=== PATIENT | male | born 1985 | race Asian ===

== ENCOUNTER 2018-03-01 16:31 | Emergency (ER) | payer SELFPAY ==
[~2018-03-01] VITALS: Ht 165.1 cm; Wt 65.9 kg
[2018-03-01 16:55] VITALS: BP 135/78
[2018-03-01] MEDS ORDERED: KETOROLAC TROMETHAMINE 10 MG TABLET PO ONE (18:15)
== END 2018-03-01 19:40 | disposition home or self-care (01) ==
LOC: EMS 16:32
DX: S52.571A Other intraarticular fracture of lower end of right radius, initial encounter for closed fracture (principal); S62.111A Displaced fracture of triquetrum [cuneiform] bone, right wrist, initial encounter for closed fracture; F17.210 Nicotine dependence, cigarettes, uncomplicated; V11.4XXA Pedal cycle driver injured in collision with other pedal cycle in traffic accident, initial encounter; Y93.55 Activity, bike riding; Y92.89 Other specified places as the place of occurrence of the external cause; Y99.8 Other external cause status